=== PATIENT | female | born 1960 | race Asian ===

== ENCOUNTER → 2016-09-27 | Outpatient (CLI) | payer BC ==
[~2016-09-27] MED LIST: NO HOME MEDICATIONS
== END ==
LOC: MC.RAD 14:20
DX: Z12.31 Encounter for screening mammogram for malignant neoplasm of breast (principal)

== ENCOUNTER 2018-02-06 23:26 | Emergency (ER) | payer OTHER, BC ==
[~2018-02-06] VITALS: Ht 157.5 cm; Wt 73.2 kg
[2018-02-06 23:30] VITALS: BP 166/74; PULSE 78; TEMP 97.6
[2018-02-06] MEDS ORDERED: LIPITOR20 MG PO (23:33)
[2018-02-06] MEDS ORDERED: PRINZIDE 12.5 M1 TAB PO (23:33)
== END 2018-02-07 00:34 | disposition home or self-care (01) ==
LOC: COL.ER 23:26
DX: S61.021A Laceration with foreign body of right thumb without damage to nail, initial encounter (principal); W26.8XXA Contact with other sharp object(s), not elsewhere classified, initial encounter; I10 Essential (primary) hypertension

== ENCOUNTER → 2018-06-02 | Outpatient (CLI) | payer BC ==
[~2018-06-02] MED LIST changes: +LIPITOR20 MG PO; +PRINZIDE 12.5 M1 TAB PO
== END ==
LOC: MC.RAD 14:30
DX: Z12.31 Encounter for screening mammogram for malignant neoplasm of breast (principal)

== ENCOUNTER → 2019-06-11 | Outpatient (CLI) | payer BC | LOC: MC.RAD 14:37 | DX: Z12.31 Encounter for screening mammogram for malignant neoplasm of breast (principal) ==

== ENCOUNTER → 2020-07-21 | Outpatient (CLI) | payer BC | LOC: MC.RAD 14:45 | DX: Z12.31 Encounter for screening mammogram for malignant neoplasm of breast (principal) ==

== ENCOUNTER → 2021-07-25 | Outpatient (CLI) | payer BC | LOC: MC.RAD 14:28 | DX: Z12.31 Encounter for screening mammogram for malignant neoplasm of breast (principal) ==

== ENCOUNTER 2022-05-17 12:46 | Inpatient (IN) | payer BC ==
[~2022-05-17] VITALS: Ht 157.5 cm; Wt 68.6 kg
[2022-05-17 13:28] LABS: BASO # 0.1 K/mm3 (0.0-0.2); BASO % 0.6 % (0.0-2.0); EOS # 0.1 K/mm3 (0.0-0.7); EOS % 0.7 % (0.0-4.0); GRAN # 6.8 K/mm3 (1.4-6.5); GRAN % 74.9 % (42.2-75.2); HEMOGLOBIN 11.3 g/dl (12.5-16.0); LYMPH # 1.7 K/mm3 (1.2-3.4); LYMPH % 18.3 % (20.0-51.0); MEAN CELL VOLUME 89 fl (80.0-100.0); MEAN CORPUSCULAR HEMOGLOBIN 29 pg (27-31); MEAN CORPUSCULAR HGB CONC 32 g/dl (33.0-37.0); MONO # 0.5 K/mm3 (0.1-0.6); MONO % 5.3 % (1.7-9.3); PLATELET COUNT 247 K/mm3 (130-400); RED BLOOD COUNT 3.97 M/mm3 (4.10-5.30); REDCELL DISTRIBUTION WIDTH-CV 12.3 % (11.5-14.5)
[2022-05-17 13:45] LABS: ALBUMIN 3.4 gm/dL (3.4-4.8); BILIRUBIN,TOTAL 0.4 mg/dL (0.2-1.2); C-REACTIVE PROTEIN 0.25 mg/dL (0.00-0.50); CALCIUM 8.6 mg/dL (8.4-10.2); CREATININE, serum 0.8 mg/dL (0.57-1.11); POTASSIUM 3.8 mmol/L (3.5-4.5); TOTAL PROTEIN 6.3 gm/dL (6.2-8.1)
[2022-05-17 13:48] LABS: HEMATOCRIT 35.3 % (37.0-47.0)
[2022-05-17 13:53] LABS: TROPONIN-I 0.092 ng/mL (0.00-0.033)
[2022-05-17] MEDS ORDERED: MASON NATURAL1200 MG PO (14:07)
[2022-05-17] MEDS ORDERED: ONE-A-DAY ESSE1 EACH PO (14:08)
[2022-05-17] MEDS ORDERED: VITAMIN B-6100 MG PO (14:08)
[2022-05-17] MEDS ORDERED: VITAMIN C500 MG PO (14:08)
[2022-05-17 16:02] VITALS: BP 128/56; PULSE 63; TEMP 98.1
[2022-05-17 20:43] VITALS: BP 103/56; PULSE 57; TEMP 98.4
[2022-05-17 22:28] VITALS: BP 68/38; PULSE 40; TEMP 97.3
--- NOTE | 2022-05-17 22:39 | NUR ---
TELE CALLED TO INFORM THIS RN OF THE PATIENT HR BRADYING DOWN. THE PATIENT WAS 37 WHEN THIS RN LOOKED AT THE TELE SCREEN. IMMEDIATELY RAN TO THE PATIENT'S ROOM D/T THE PATIENT JUST CALLING OUT TO STATE THAT SHE WAS NAUSEATED AND FELT LIKE THROWING UP. HAD JUST CALLED PROVIDER TO GET ORDER FOR ZOFRAN. THE PATIENT UPON ASSESSMENT STATES THAT SHE IS LIGHTHEADED, DIZZY AND DIAPHORETIC. THE PATIENT'S BLOOD PRESSURE AT THIS TIME IS 68/38, RECHECK WITHIN 5 MINUTES IS 68/44. CONTACTED ANN SALEH WHO ORDERED A 1L BOLUS OF NS, STARTED THE BOLUS, PT'S BP IS NOW 87/44, RECHECK WITHIN 5 MINTUES IT IS 96/52. WILL CONTINUE TO MONITOR.
--- NOTE | 2022-05-17 22:50 | NUR ---
EKG ORDERED, CARDIOPULMONARY AT BEDSIDE.
[2022-05-18] VITALS (20 sets, daily range): BP systolic 100–129; BP diastolic 40–69; PULSE 49–83; TEMP 97.5–98.9
[2022-05-18 06:07] LABS: COLLECTION METHOD CLEAN CATCH
[2022-05-18 06:20] LABS: BASO % 0.4 % (0.0-2.0); EOS # 0.1 K/mm3 (0.0-0.7); EOS % 0.6 % (0.0-4.0); GRAN # 6.2 K/mm3 (1.4-6.5); GRAN % 74.8 % (42.2-75.2); HEMOGLOBIN 10.4 g/dl (12.5-16.0); LYMPH # 1.6 K/mm3 (1.2-3.4); LYMPH % 19.4 % (20.0-51.0); MEAN CELL VOLUME 89 fl (80.0-100.0); MEAN CORPUSCULAR HEMOGLOBIN 29 pg (27-31); MEAN CORPUSCULAR HGB CONC 33 g/dl (33.0-37.0); MEAN PLATELET VOLUME 10.5 fl (7.4-10.4); MONO # 0.4 K/mm3 (0.1-0.6); MONO % 4.6 % (1.7-9.3); PLATELET COUNT 224 K/mm3 (130-400); RED BLOOD COUNT 3.59 M/mm3 (4.10-5.30); REDCELL DISTRIBUTION WIDTH-CV 12.5 % (11.5-14.5)
[2022-05-18 06:24] LABS: HEMATOCRIT 31.9 % (37.0-47.0)
[2022-05-18 06:33] LABS: CALCIUM 7.9 mg/dL (8.4-10.2); CHOLESTEROL RISK RATIO 2.8; CREATININE, serum 0.62 mg/dL (0.57-1.11); POTASSIUM 3.5 mmol/L (3.5-4.5)
[2022-05-18 06:44] LABS: MUCOUS Present (NOT PRESENT); SQUAMOUS EPITHELIAL None Seen /hpf (0-10); URINE BACTERIA None Seen /hpf (NONE SEEN); URINE RBC None Seen /hpf (0-2)
[2022-05-18 06:45] LABS: URINE APPEARANCE Clear (CLEAR/HAZY); URINE COLOR Yellow (YELLOW)
[2022-05-18 06:46] LABS: URINE BLOOD Negative (NEGATIVE); URINE GLUCOSE Negative (NEGATIVE); URINE KETONE TRACE (NEGATIVE); URINE NITRATE Negative (NEGATIVE); URINE PROTEIN(semi-quant) Negative (NEGATIVE); URINE UROBILINOGEN 0.2 E.U/dL (0.2-1.0)
--- NOTE | 2022-05-18 08:55 | NUR ---
Initial visit; Patient thanked Pipe Racker for looking in on her and offering a "get well" message. Patient's daughter was also present and very pleasant.
[2022-05-18 09:51] LABS: INR 1.1 (0.8-3.0); PROTHROMBIN TIME 12.3 SECONDS (9.7-12.8)
[2022-05-18 09:53] LABS: PARTIAL THROMBOPLASTIN TIME 73.6 SECONDS (26.0-37.0)
--- NOTE | 2022-05-18 12:34 | NUR ---
SEE MERGE FOR VITAL SIGNS, ASSESSMENTS, INTERVENTIONS AND MEDICATIONS GIVEN.
--- NOTE | 2022-05-18 15:02 | NUR ---
Relationship Executive met with patient to discuss discharge planning. Patient lives in [place] and sees Dr. Juárez for primary care. Patient obtains medications from [facility] with no difficulties. Patient does not use any DME and is independent with ADLS. Patient's daughter, Daphney (ph#[phone]) is at bedside. Patient does not have DPOA-HC and is not interested in completing one at this time. Discharge Plan: Home
--- NOTE | 2022-05-18 15:57 | NUR ---
Reviewed discharge instructions for heart catheterization. Cleaning site with mild soap and water, pat dry. Discussed monitoring for redness, hot to touch, inflammation, or temperature >100.4. Discussed when to contact the physician for signs of symptoms of complications or SC. Also reviewed risk factors for heart disease. Covered applicable modifiable risk factors including the following: tobacco cessation, HTN, hyperlipidemia, diabetes, overweight/obesity, sedentary lifestyle, and stress/depression. Patient verbalized understanding. Referral sent to [facility] with patient's permission. Pt.'s daughter at bedside, discussed referral and will follow up with patient following discharge. Time spent with patient approx. 10 minutes.
--- NOTE | 2022-05-19 00:36 | NUR ---
Patient assessed around 2054. Got up and ambulated to bathroom at that time, one stand by assist. Gait slow and steady. Denied having any SOB and dyspnea, as well as dizzines with ambulation. All air to right radial heart cath site let out, and bandaid put in place. Continues to wear arm board for protection to site. Patient has telemetry on, HR kalia, sinus rhythm. Voices no questions, needs, or concerns at this time. In bed with call light within reach.
[2022-05-19 05:25] VITALS: BP 115/53; PULSE 66; TEMP 98.3
--- NOTE | 2022-05-19 05:26 | NUR ---
Patient has denied having pain and discomfort this shift. HR has been kalia at times. BP have been stable. Reports feeling much better tonight. Voices no questions, needs, or concerns at this time. In bed with call light within reach.
[2022-05-19 06:25] LABS: BASO % 0.5 % (0.0-2.0); EOS % 0.3 % (0.0-4.0); GRAN % 64.4 % (42.2-75.2); HEMOGLOBIN 10.5 g/dl (12.5-16.0); LYMPH # 1.7 K/mm3 (1.2-3.4); LYMPH % 27.9 % (20.0-51.0); MEAN CELL VOLUME 87 fl (80.0-100.0); MEAN CORPUSCULAR HEMOGLOBIN 29 pg (27-31); MEAN CORPUSCULAR HGB CONC 33 g/dl (33.0-37.0); MEAN PLATELET VOLUME 10.3 fl (7.4-10.4); MONO # 0.4 K/mm3 (0.1-0.6); MONO % 6.7 % (1.7-9.3); PLATELET COUNT 205 K/mm3 (130-400); RED BLOOD COUNT 3.65 M/mm3 (4.10-5.30); REDCELL DISTRIBUTION WIDTH-CV 12.9 % (11.5-14.5)
[2022-05-19 06:35] LABS: HEMATOCRIT 31.9 % (37.0-47.0)
[2022-05-19 06:43] LABS: CALCIUM 8.2 mg/dL (8.4-10.2); CREATININE, serum 0.63 mg/dL (0.57-1.11); POTASSIUM 3.2 mmol/L (3.5-4.5)
--- NOTE | 2022-05-19 07:39 | NUR ---
CALLED DR. MENDEZ REGARDING CRITICAL TROPONIN.
[2022-05-19 07:45] VITALS: BP 133/60; PULSE 64; TEMP 98.3
[2022-05-19] MEDS ORDERED: LIPITOR 80MG80 MG PO (10:04)
[2022-05-19] MEDS ORDERED: PLAVIX 75MG TAB75 MG PO (10:04)
[2022-05-19] MEDS ORDERED: NITROSTAT0.4 MG/TAB SL (10:04)
[2022-05-19] MEDS ORDERED: ASPIRIN E.C. 8181 MG PO (10:05)
[2022-05-19] MEDS ORDERED: PRINIVIL10 MG PO (10:05)
[2022-05-23] MEDS ORDERED: TOPROL XL 25MG25 MG PO (04:37)
[2022-05-23] MEDS ORDERED: IMDUR 30MG30 MG/TAB PO (11:12)
[2022-05-23] MEDS ORDERED: PEPCID 20MG TAB20 MG PO (11:13)
== END 2022-05-19 11:30 | disposition home or self-care (01) | DRG 247 ==
LOC: COL.ER 12:46 → MEDICAL 14:16
PROVIDERS: Emergency Medicine; Internal Medicine Interventional Cardiology; Nurse Practitioner; Nurse Practitioner Family; ADMIT Student in an Organized Health Care Education/Training Program
PROC: 027034Z Dilation of Coronary Artery, One Artery with Drug-eluting Intraluminal Device, Percutaneous Approach (ICD-10-PCS; principal; 2022-05-18)
PROC: 4A023N7 Measurement of Cardiac Sampling and Pressure, Left Heart, Percutaneous Approach (ICD-10-PCS; 2022-05-18)
PROC: B2111ZZ Fluoroscopy of Multiple Coronary Arteries using Low Osmolar Contrast (ICD-10-PCS; 2022-05-18)
DX: I21.4 Non-ST elevation (NSTEMI) myocardial infarction (principal); I95.9 Hypotension, unspecified; M17.12 Unilateral primary osteoarthritis, left knee; I34.0 Nonrheumatic mitral (valve) insufficiency; E87.6 Hypokalemia; I25.10 Atherosclerotic heart disease of native coronary artery without angina pectoris; I10 Essential (primary) hypertension; R00.1 Bradycardia, unspecified; Z88.0 Allergy status to penicillin
CPT/HCPCS: OP; C1725; C1769; C1874; C1887; C9600; G0378; J0583; J1644; J2250; J2405; J3010; J7030; J7040; Q9967

== ENCOUNTER 2022-09-10 15:12 | Outpatient (RCR) | payer BC ==
[~2022-09-10 15:12] MED LIST changes: +ASPIRIN E.C. 8181 MG PO; +IMDUR 30MG30 MG/TAB PO; +LIPITOR 80MG80 MG PO; +MASON NATURAL1200 MG PO; +NITROSTAT0.4 MG/TAB SL; +ONE-A-DAY ESSE1 EACH PO; +PEPCID 20MG TAB20 MG PO; +PLAVIX 75MG TAB75 MG PO; +PRINIVIL10 MG PO; +TOPROL XL 25MG25 MG PO; +VITAMIN B-6100 MG PO; +VITAMIN C500 MG PO
== END 2022-09-11 | disposition still patient (30) ==
LOC: COL.CR
DX: Z48.812 Encounter for surgical aftercare following surgery on the circulatory system (principal); Z95.5 Presence of coronary angioplasty implant and graft

== ENCOUNTER 2022-09-12 14:41 | Outpatient (RCR) | payer BC | END 2022-10-09 | disposition home or self-care (01) | LOC: COL.CR | DX: Z48.812 Encounter for surgical aftercare following surgery on the circulatory system (principal); Z95.5 Presence of coronary angioplasty implant and graft ==

== ENCOUNTER 2023-08-15 08:49 | Emergency (ER) | payer BC ==
[~2023-08-15] VITALS: Ht 157.5 cm; Wt 57.7 kg
[2023-08-15 08:58] VITALS: BP 147/83; PULSE 92; TEMP 97.9
== END 2023-08-15 10:00 | disposition home or self-care (01) ==
LOC: COL.ER 08:49
DX: S61.215A Laceration without foreign body of left ring finger without damage to nail, initial encounter (principal); I25.10 Atherosclerotic heart disease of native coronary artery without angina pectoris; Z79.02 Long term (current) use of antithrombotics/antiplatelets; W23.1XXA Caught, crushed, jammed, or pinched between stationary objects, initial encounter

== ENCOUNTER → 2024-02-12 | Outpatient (CLI) | payer BC | LOC: MC.RAD 14:11 | DX: Z12.31 Encounter for screening mammogram for malignant neoplasm of breast (principal) ==